=== PATIENT | male | born 1960 | race Two or more races ===

== ENCOUNTER 2017-03-23 23:43 | Inpatient (IN) | payer SELFPAY ==
[~2017-03-23] VITALS: Ht 182.9 cm; Wt 99.8 kg
[2017-03-24] VITALS (45 sets, daily range): BP systolic 87–150; BP diastolic 26–92
[2017-03-24] MEDS ORDERED: Miralax 17gm pkt ORAL PRN (00:15)
[2017-03-24] MEDS ORDERED: Morphine Sulfate 2mg/ml Inj IVP PRN (00:15)
[2017-03-24] MEDS ORDERED: LORazepam Inj 2mg/ml 1ml IV PRN (00:15)
[2017-03-24] MEDS ORDERED: Zolpidem 5mg tab ORAL PRN (00:15)
[2017-03-24] MEDS ORDERED: Mylanta II UD 30ml ORAL PRN (00:15)
[2017-03-24 00:47] LABS: MEAN CORPUSCULAR HEMOGLOBIN 16.6 PG (27.0-31.0); MEAN CORPUSCULAR HGB CONC 27.1 G/DL (32.0-36.0); MEAN CORPUSCULAR VOLUME 61 FL (80-99); MEAN PLATELET VOLUME 5.8 FL (6.5-10.1); PLATELET COUNT 229 K/UL (150-450); RED BLOOD COUNT 3.33 M/UL (4.70-6.10); RED CELL DISTRIBUTION WIDTH 18.4 % (11.6-14.8)
[2017-03-24 00:58] LABS: INR 1.1 (0.9-1.1); PROTHROMBIN TIME 11.4 SEC (9.30-11.50)
--- NOTE | 2017-03-24 00:59 | Emergency Room Report ---
History of Present Illness General Chief Complaint: Seizure Source: Patient, EMS Present Illness HPI Patient was brought in by paramedics for reports of seizure activity Patient was witnessed by bystanders having a seizure Patient here is incoherent not able to provide appropriate history patient is slurring his speech Appears edematous his facial area Unknown past medical history History of present illness is significantly limited Patient moving all extremities without focal deficit Allergies: Coded Allergies: No Known Allergies (Unverified , 03/24/17) Patient History Limited by: medical condition Past Medical History: see triage record Past Surgical History: unable to obtain Pertinent Family History: unable to obtain Reviewed Nursing Documentation: PMH: Agreed, PSxH: Agreed Review of Systems All Other Systems: limited - Other than the ones mentioned in the history of present illness all others are reviewed however they do stay limited due to the patient's mental status Physical Exam Vital Signs Date Time Temp Pulse Resp B/P (MAP) Pulse Ox O2 Delivery O2 Flow Rate FiO2 03/23/17 23:40 98.1 77 20 110/74 99 Room Air Sp02 EP Interpretation: reviewed, normal General Appearance: mild distress - Patient appears confused, not able to have appropriate speech Head: normocephalic, atraumatic Eyes: bilateral eye PERRL, bilateral eye EOMI, bilateral eye other - However appears edematous on both upper and lower eyelids ENT: normal pharynx, no angioedema Neck: full range of motion, supple Respiratory: chest non-tender, lungs clear Cardiovascular #1: regular rate, rhythm Gastrointestinal: non tender, soft Genitourinary: no CVA tenderness Musculoskeletal: other - Patient does not follow commands however is observed moving all extremities without obvious focal deficit Neurologic: other - Decreased GCS, incomprehensible speech, no obvious focal deficit maintains appropriate gag reflex, Skin: no rash, warm/dry Lymphatic: no adenopathy Procedures Critical Care Time Critical Care Time 80 minutes for multiple re\re evaluations Continued critical care time in the emergency room while holding ICU admission Not including any procedural time Medical Decision Making Diagnostic Impression: Primary Impression: Symptomatic anemia Additional Impressions: Alcohol intoxication GI bleed ER Course Upon initial arrival multiple differentials are considered including but not limited to Intracranial pathology, infectious, metabolic Patient's hemoglobin count returns extremely low at 5.6 Rectal exam does not reveal any obvious melena Patient was found to have Motrin p.m. in his pocket Alcohol level is over 500 Raising concerns of possible upper GI hemorrhage patient has not had any vomiting at this time Maintains gag reflex And saturates well Therefore airway intubation has not been performed Patient has blood transfusions ordered Has multiple repeat examinations CT head does not reveal any obvious acute pathology And patient is admitted to the ICU for critical condition Labs Test 03/24/17 00:33 03/24/17 01:45 White Blood Count 6.0 K/UL (4.8-10.8) Red Blood Count 3.33 M/UL (4.70-6.10) Hemoglobin 5.5 G/DL (14.2-18.0) Hematocrit 20.4 % (42.0-52.0) Mean Corpuscular Volume 61 FL (80-99) Mean Corpuscular Hemoglobin 16.6 PG (27.0-31.0) Mean Corpuscular Hemoglobin Concent 27.1 G/DL (32.0-36.0) Red Cell Distribution Width 18.4 % (11.6-14.8) Platelet Count 229 K/UL (150-450) Mean Platelet Volume 5.8 FL (6.5-10.1) Neutrophils (%) (Auto) % (45.0-75.0) Lymphocytes (%) (Auto) % (20.0-45.0) Monocytes (%) (Auto) % (1.0-10.0) Eosinophils (%) (Auto) % (0.0-3.0) Basophils (%) (Auto) % (0.0-2.0) Prothrombin Time 11.4 SEC (9.30-11.50) Prothromb Time International Ratio 1.1 (0.9-1.1) Activated Partial Thromboplast Time 32 SEC (23-33) Sodium Level 130 MMOL/L (136-145) Potassium Level 3.8 MMOL/L (3.5-5.1) Chloride Level 96 MMOL/L (98-107) Carbon Dioxide Level 23 MMOL/L (21-32) Anion Gap 11 mmol/L (5-15) Blood Urea Nitrogen 13 mg/dL (7-18) Creatinine 1.0 MG/DL (0.55-1.30) Estimat Glomerular Filtration Rate > 60 mL/min (>60) Glucose Level 100 MG/DL (74-106) Calcium Level 7.6 MG/DL (8.5-10.1) Total Bilirubin 0.5 MG/DL (0.2-1.0) Aspartate Amino Transf (AST/SGOT) 64 U/L (15-37) Alanine Aminotransferase (ALT/SGPT) 19 U/L (12-78) Alkaline Phosphatase 66 U/L (46-116) Total Creatine Kinase 164 U/L (26-308) Creatine Kinase MB 1.8 NG/ML (0.0-3.6) Creatine Kinase MB Relative Index 1.0 Troponin I 0.034 ng/mL (0.000-0.056) Pro-B-Type Natriuretic Peptide 417 pg/mL (0-125) Total Protein 8.9 G/DL (6.4-8.2) Albumin 3.1 G/DL (3.4-5.0) Globulin 5.8 g/dL Albumin/Globulin Ratio 0.5 (1.0-2.7) Lipase 373 U/L (73-393) Serum Alcohol 576 mg/dL Urine Color Yellow Urine Appearance Clear Urine pH 6.0 (4.5-8.0) Urine Specific [place] 1.010 (1.005-1.035) Urine Protein Negative (NEGATIVE) Urine Glucose (UA) Negative (NEGATIVE) Urine Ketones Negative (NEGATIVE) Urine Occult Blood Negative (NEGATIVE) Urine Nitrite Negative (NEGATIVE) Urine Bilirubin Negative (NEGATIVE) Urine Urobilinogen Normal MG/DL (0.0-1.0) Urine Leukocyte Esterase Negative (NEGATIVE) Urine Opiates Screen Negative (NEGATIVE) Urine Barbiturates Screen Negative (NEGATIVE) Phencyclidine (PCP) Screen Negative (NEGATIVE) Urine Amphetamines Screen Negative (NEGATIVE) Urine Benzodiazepines Screen Negative (NEGATIVE) Urine Cocaine Screen Negative (NEGATIVE) Urine Marijuana (THC) Screen Negative (NEGATIVE) EKG Diagnostic Results Rate: normal Rhythm: NSR ST Segments: no acute changes Rhythm Strip Diag. Results EP Interpretation: yes Rate: 77 Rhythm: NSR, no PVC's, no ectopy Chest X-Ray Diagnostic Results Chest X-Ray Diagnostic Results : Chest X-Ray Ordered: Yes # of Views/Limited/Complete: 1 View Indication: Chest Pain EP Interpretation: Yes Interpretation: no consolidation, no effusion, no pneumothorax Impression: No acute disease Electronically Signed by: Angle Walker, DO CT/MRI/US Diagnostic Results CT/MRI/US Diagnostic Results : Impression CT head no acute disease Last Vital Signs Date Time Temp Pulse Resp B/P (MAP) Pulse Ox O2 Delivery O2 Flow Rate FiO2 03/23/17 23:40 98.1 77 20 110/74 99 Room Air Status: improved Disposition: ADMITTED INPATIENT Condition: Critical Referrals: NOT CHOSEN IPA/,REFERRING (PCP) ANGLE WALKER D.O. Mar 24, 2017 00:59
[2017-03-24 01:09] LABS: ANION GAP 11 mmol/L (5-15); CALCIUM 7.6 MG/DL (8.5-10.1); CARBON DIOXIDE 23 MMOL/L (21-32); CHLORIDE 96 MMOL/L (98-107); GLOMERULAR FILTRATION RATE > 60 mL/min (>60); POTASSIUM 3.8 MMOL/L (3.5-5.1); SODIUM 130 MMOL/L (136-145)
[2017-03-24 01:21] LABS: ALANINE AMINOTRANSFERASE 19 U/L (12-78); ALBUMIN/GLOBULIN RATIO 0.5 (1.0-2.7); ALCOHOL 576 mg/dL; ASPARTATE AMINO TRANSFERASE 64 U/L (15-37); CKMB 1.8 NG/ML (0.0-3.6); LIPASE 373 U/L (73-393); TOTAL PROTEIN 8.9 G/DL (6.4-8.2)
[2017-03-24] MEDS ORDERED: Pantoprazole Inj IVP ONE (01:30)
[2017-03-24] MEDS ORDERED: Calcium Chloride 100mg/ml Vial IVP ONE (01:30)
[2017-03-24] MEDS ORDERED: Calcium Gluconate 1gm/10ml vial ONE (02:38)
[2017-03-24] MEDS ORDERED: Calcium Gluconate 10% 1 GM in NS 110 ML IVPB ONE (02:45)
[2017-03-24 03:01] LABS: KETONES,URINE NEGATIVE (NEGATIVE); LEUKOCYTE ESTERASE ,URINE NEGATIVE (NEGATIVE); NITRITE,URINE NEGATIVE (NEGATIVE); PROTEIN,URINE NEGATIVE (NEGATIVE); UROBILINOGEN,URINE NORMAL MG/DL (0.0-1.0)
[2017-03-24 03:02] LABS: APPEARANCE,URINE CLEAR
[2017-03-24] MEDS ORDERED: Heparin 5000 units/ml inj SUBQ SCH (09:00)
[2017-03-24] MEDS ORDERED: MOTRIN PM CAPL1 EAC1 PO (11:42)
--- NOTE | 2017-03-24 16:25 | History and Physical ---
History of Present Illness General Date patient seen: Mar 24, 2017 Reason for Hospitalization: Seizure Present Illness HPI 56 year old male with hx of ETOH abuse, homelessness brought in by paramedics for reports of seizure activity Patient was witnessed by bystanders having a seizure. His hem was 5 and he is admitted to ICU. He had episode of ugi bleeding as well. Allergies: Coded Allergies: No Known Allergies (Unverified , 03/24/17) Medication History Scheduled Ibuprofen/Diphenhydramine (Motrin Pm Caplet), 1 EACH PO DAILY, (Reported) Patient History Healthcare decision maker Resuscitation status Full Code Advanced Directive on File Past Medical/Surgical History Past Medical/Surgical History: (1) Homelessness Review of Systems All Other Systems: negative except mentioned in HPI Physical Exam General Appearance: WD/WN Lines, tubes and drains: peripheral HEENT: normocephalic, atraumatic Neck: non-tender, normal alignment Respiratory/Chest: chest wall non-tender, lungs clear Cardiovascular/Chest: normal peripheral pulses, normal rate Abdomen: normal bowel sounds, soft Genitourinary/Rectal: normal genital exam, normal rectal exam Extremities: normal range of motion, non-tender Skin Exam: normal pigmentation Last 24 Hour Vital Signs Date Time Temp Pulse Resp B/P (MAP) Pulse Ox O2 Delivery O2 Flow Rate FiO2 03/24/17 16:00 89 03/24/17 15:00 97.8 97 18 130/79 98 Room Air 03/24/17 14:10 96.9 81 17 114/66 100 Room Air 03/24/17 13:10 96.9 83 23 107/67 100 Room Air 03/24/17 12:55 96.9 78 14 107/66 97 Room Air 03/24/17 12:40 97.4 88 16 117/76 100 Room Air 03/24/17 12:35 97.2 90 15 122/81 100 Room Air 03/24/17 12:30 97.0 90 13 105/67 100 Room Air 03/24/17 12:25 96.8 79 16 103/70 100 Room Air 03/24/17 12:25 96.8 79 18 03/24/17 11:30 96.5 81 21 113/66 100 Room Air 03/24/17 10:45 96.5 71 14 97/64 100 Room Air 03/24/17 10:30 96.9 75 16 103/61 99 Room Air 03/24/17 10:15 96.6 78 16 105/66 100 Room Air 03/24/17 10:10 96.9 79 15 101/66 100 Room Air 03/24/17 10:05 96.9 83 14 96/61 100 Room Air 03/24/17 10:00 96.4 80 18 03/24/17 10:00 96.4 80 15 102/63 100 Room Air 03/24/17 09:30 93.1 72 16 102/63 99 Room Air 03/24/17 08:45 96.3 71 12 107/67 99 Room Air 03/24/17 08:25 96.3 72 13 96/63 99 Room Air 03/24/17 08:10 96.4 76 13 103/64 99 Room Air 03/24/17 07:55 96.0 80 14 98/66 100 Room Air 03/24/17 07:40 96.1 82 14 107/71 99 Room Air 03/24/17 07:35 96.3 85 17 105/61 99 Room Air 03/24/17 07:30 96.3 83 15 93/61 100 Room Air 03/24/17 07:25 96.5 86 16 100/66 100 Room Air 03/24/17 07:25 96.5 86 16 03/24/17 07:23 98.7 78 16 95/63 99 Room Air 03/24/17 07:15 81 15 Room Air 03/24/17 07:00 98.7 76 16 03/24/17 07:00 98.5 71 16 109/66 99 Room Air 03/24/17 06:30 98.7 76 16 87/62 99 Room Air 03/24/17 06:00 98.7 76 16 109/63 99 Room Air 03/24/17 05:30 98.7 76 16 118/67 99 Room Air 03/24/17 05:00 98.7 88 16 116/66 99 Room Air 03/24/17 04:15 99.5 79 16 03/24/17 04:15 99.5 79 16 107/26 99 Room Air 03/24/17 04:00 99.7 76 16 93/55 99 Room Air 03/24/17 04:00 99.7 76 16 03/24/17 03:30 99.3 77 20 97/73 99 Room Air 03/24/17 03:00 99.5 77 20 97/75 99 Room Air 03/24/17 02:30 98.9 77 20 104/65 99 Room Air 03/24/17 02:00 98.7 78 20 104/65 99 Room Air 03/24/17 01:30 98.1 73 20 116/63 99 Room Air 03/24/17 01:00 98.1 78 20 114/92 99 Room Air 03/23/17 23:45 77 20 Room Air 03/23/17 23:40 98.1 77 20 110/74 99 Room Air Intake and Output 03/24/17 03/25/17 19:00 07:00 Intake Total 500 ml Output Total 2350 ml Balance -1850 ml Blood Product 500 ml Output Urine Total 2350 ml # Voids 2 Laboratory Tests Test 03/24/17 00:33 03/24/17 01:45 03/24/17 16:15 White Blood Count 6.0 K/UL (4.8-10.8) Pending Red Blood Count 3.33 M/UL (4.70-6.10) L Pending Hemoglobin 5.5 G/DL (14.2-18.0) *L Pending Hematocrit 20.4 % (42.0-52.0) L Pending Mean Corpuscular Volume 61 FL (80-99) L Pending Mean Corpuscular Hemoglobin 16.6 PG (27.0-31.0) L Pending Mean Corpuscular Hemoglobin Concent 27.1 G/DL (32.0-36.0) L Pending Red Cell Distribution Width 18.4 % (11.6-14.8) H Pending Platelet Count 229 K/UL (150-450) Pending Mean Platelet Volume 5.8 FL (6.5-10.1) L Pending Neutrophils (%) (Auto) % (45.0-75.0) Pending Lymphocytes (%) (Auto) % (20.0-45.0) Pending Monocytes (%) (Auto) % (1.0-10.0) Pending Eosinophils (%) (Auto) % (0.0-3.0) Pending Basophils (%) (Auto) % (0.0-2.0) Pending Prothrombin Time 11.4 SEC (9.30-11.50) Prothromb Time International Ratio 1.1 (0.9-1.1) Activated Partial Thromboplast Time 32 SEC (23-33) Sodium Level 130 MMOL/L (136-145) L Pending Potassium Level 3.8 MMOL/L (3.5-5.1) Pending Chloride Level 96 MMOL/L (98-107) L Pending Carbon Dioxide Level 23 MMOL/L (21-32) Pending Anion Gap 11 mmol/L (5-15) Blood Urea Nitrogen 13 mg/dL (7-18) Pending Creatinine 1.0 MG/DL (0.55-1.30) Pending Estimat Glomerular Filtration Rate > 60 mL/min (>60) Pending Glucose Level 100 MG/DL (74-106) Pending Calcium Level 7.6 MG/DL (8.5-10.1) L Pending Total Bilirubin 0.5 MG/DL (0.2-1.0) Pending Aspartate Amino Transf (AST/SGOT) 64 U/L (15-37) H Pending Alanine Aminotransferase (ALT/SGPT) 19 U/L (12-78) Pending Alkaline Phosphatase 66 U/L (46-116) Pending Total Creatine Kinase 164 U/L (26-308) Creatine Kinase MB 1.8 NG/ML (0.0-3.6) Creatine Kinase MB Relative Index 1.0 Troponin I 0.034 ng/mL (0.000-0.056) Pro-B-Type Natriuretic Peptide 417 pg/mL (0-125) H Total Protein 8.9 G/DL (6.4-8.2) H Pending Albumin 3.1 G/DL (3.4-5.0) L Pending Globulin 5.8 g/dL Pending Albumin/Globulin Ratio 0.5 (1.0-2.7) L Lipase 373 U/L (73-393) Serum Alcohol 576 mg/dL Urine Color Yellow Urine Appearance Clear Urine pH 6.0 (4.5-8.0) Urine Specific [place] 1.010 (1.005-1.035) Urine Protein Negative (NEGATIVE) Urine Glucose (UA) Negative (NEGATIVE) Urine Ketones Negative (NEGATIVE) Urine Occult Blood Negative (NEGATIVE) Urine Nitrite Negative (NEGATIVE) Urine Bilirubin Negative (NEGATIVE) Urine Urobilinogen Normal MG/DL (0.0-1.0) Urine Leukocyte Esterase Negative (NEGATIVE) Urine Opiates Screen Negative (NEGATIVE) Urine Barbiturates Screen Negative (NEGATIVE) Phencyclidine (PCP) Screen Negative (NEGATIVE) Urine Amphetamines Screen Negative (NEGATIVE) Urine Benzodiazepines Screen Negative (NEGATIVE) Urine Cocaine Screen Negative (NEGATIVE) Urine Marijuana (THC) Screen Negative (NEGATIVE) Height (Feet): 6 Height (Inches): 0.00 Weight (Pounds): 220 Medications Current Medications Medications (Trade) Dose Ordered Sig/Wendy Route PRN Reason Start Time Stop Time Status Last Admin Dose Admin Acetaminophen (Tylenol) 650 mg Q4H PRN ORAL fever 03/24/17 00:15 04/23/17 00:14 Al Hydroxide/Mg Hydroxide (Mylanta II) 30 ml Q6H PRN ORAL dyspepsia 03/24/17 00:15 04/23/17 00:14 Dextrose (Dextrose 50%) STAT PRN IV Hypoglycemia 03/24/17 00:15 04/23/17 00:14 Folic Acid 1 mg/ Magnesium Sulfate 2000 mg/ Multivitamins 10 ml/Sodium Chloride 1,014.2 ml @ 125 mls/ hr Q24H IV 03/24/17 16:00 04/23/17 15:59 Lorazepam (Ativan 2mg/ml 1ml) 2 mg Q1H PRN IV seizures 03/24/17 00:15 03/31/17 00:14 Morphine Sulfate (Morphine Sulfate) 1 mg Q4H PRN IVP For Pain 03/24/17 00:15 03/31/17 00:14 Ondansetron HCl (Zofran) 4 mg Q6H PRN IVP Nausea & Vomiting 03/24/17 00:15 04/23/17 00:14 Pantoprazole (Protonix) 40 mg EVERY 12 HOURS IVP 03/24/17 21:00 04/23/17 20:59 Polyethylene Glycol (Miralax) 17 gm HSPRN PRN ORAL Constipation 03/24/17 00:15 04/23/17 00:14 Thiamine HCl 100 mg/Dextrose 56 ml @ 112 mls/hr Q24H IVPB 03/24/17 16:00 04/23/17 15:59 Zolpidem Tartrate (Ambien) 5 mg HSPRN PRN ORAL Insomnia 03/24/17 00:15 03/31/17 00:14 Assessment/Plan Problem List: (1) Hemorrhagic shock ICD Codes: R57.8 - Other shock SNOMED: 645808 (2) GI bleed ICD Codes: K92.2 - Gastrointestinal hemorrhage, unspecified SNOMED: 71442498 (3) Alcohol intoxication ICD Codes: F10.929 - Alcohol use, unspecified with intoxication, unspecified SNOMED: 84097971 (4) Homelessness ICD Codes: Z59.0 - Homelessness SNOMED: 32675915 (5) Uncontrolled seizures ICD Codes: R56.9 - Unspecified convulsions SNOMED: 21961155 (6) Symptomatic anemia ICD Codes: D64.9 - Anemia, unspecified SNOMED: 508990560 Assessment/Plan prbc prn check coagulation symptomatic treatment librium banana bag GI evaluation SAVANNAH JUAREZ Mar 24, 2017 16:25
[2017-03-24 16:26] LABS: MEAN CORPUSCULAR HEMOGLOBIN 21.2 PG (27.0-31.0); MEAN CORPUSCULAR HGB CONC 30.5 G/DL (32.0-36.0); MEAN CORPUSCULAR VOLUME 69 FL (80-99); MEAN PLATELET VOLUME 5.7 FL (6.5-10.1); PLATELET COUNT 186 K/UL (150-450); RED BLOOD COUNT 4.17 M/UL (4.70-6.10); WHITE BLOOD COUNT 3.3 K/UL (4.8-10.8)
[2017-03-24 16:29] LABS: BASOPHILS % (AUTO) 2.1 % (0.0-2.0); LYMPHOCYTES % (AUTO) 15.5 % (20.0-45.0); MONOCYTES % (AUTO) 11.7 % (1.0-10.0); NEUTROPHILS % (AUTO) 65.8 % (45.0-75.0)
[2017-03-24] MEDS ORDERED: chlordiazePOXIDE 25mg Cap ORAL PRN (16:30)
[2017-03-24 16:34] LABS: ANION GAP 12 mmol/L (5-15); CALCIUM 7.8 MG/DL (8.5-10.1); CARBON DIOXIDE 24 MMOL/L (21-32); CHLORIDE 106 MMOL/L (98-107); CREATININE 0.8 MG/DL (0.55-1.30); GLOMERULAR FILTRATION RATE > 60 mL/min (>60); POTASSIUM 3.5 MMOL/L (3.5-5.1); SODIUM 142 MMOL/L (136-145)
--- NOTE | 2017-03-24 16:36 | GI Initial Consult Note ---
History of Present Illness General Date patient seen: Mar 24, 2017 Time patient seen: 16:27 Reason for Hospitalization: Seizure Referring physician: SAVANNAH TOMPKINS Reason for Consultation: ANEMIA Present Illness HPI 56 year old male with hx of ETOH abuse, homelessness brought in by paramedics for reports of seizure activity Patient was witnessed by bystanders having a seizure. His hem was 5 and he is admitted to ICU. He had episode of ugi bleeding as well. GI consulted for anemia requiring 4 units of blood transfusion. HPI as noted above. Pt seen on floor, awake A&Ox4 NAD with no active s/sx of N/V/D. Generalized edema noted. Stated he had half a bottle of tequila and has history of ETOH abuse. No known history of endoscopic /colonoscopies. Abdomen soft, non tender to touch. Presents today with severe anemia, elevated serum alcohol levels 576 and transaminitis. Home Meds Reported Medications Ibuprofen/Diphenhydramine (MOTRIN PM CAPLET) 1 Each Tablet, 1 EACH PO DAILY, TAB 03/24/17 Allergies: Coded Allergies: No Known Allergies (Unverified , 03/24/17) Patient History History Provided By: Patient PMH Narrative Past Medical/Surgical History: Homelessness HTN Social History: Reports: alcohol use - ETOH abuse Review of Systems All Other Systems: negative except mentioned in HPI Physical Exam Vital Signs Date Time Temp Pulse Resp B/P (MAP) Pulse Ox O2 Delivery O2 Flow Rate FiO2 03/23/17 23:40 98.1 77 20 110/74 99 Room Air Sp02 EP Interpretation: reviewed, normal Labs Laboratory Tests Test 03/24/17 00:33 03/24/17 01:45 03/24/17 16:15 White Blood Count 6.0 K/UL (4.8-10.8) Pending Red Blood Count 3.33 M/UL (4.70-6.10) L Pending Hemoglobin 5.5 G/DL (14.2-18.0) *L Pending Hematocrit 20.4 % (42.0-52.0) L Pending Mean Corpuscular Volume 61 FL (80-99) L Pending Mean Corpuscular Hemoglobin 16.6 PG (27.0-31.0) L Pending Mean Corpuscular Hemoglobin Concent 27.1 G/DL (32.0-36.0) L Pending Red Cell Distribution Width 18.4 % (11.6-14.8) H Pending Platelet Count 229 K/UL (150-450) Pending Mean Platelet Volume 5.8 FL (6.5-10.1) L Pending Neutrophils (%) (Auto) % (45.0-75.0) Pending Lymphocytes (%) (Auto) % (20.0-45.0) Pending Monocytes (%) (Auto) % (1.0-10.0) Pending Eosinophils (%) (Auto) % (0.0-3.0) Pending Basophils (%) (Auto) % (0.0-2.0) Pending Prothrombin Time 11.4 SEC (9.30-11.50) Prothromb Time International Ratio 1.1 (0.9-1.1) Activated Partial Thromboplast Time 32 SEC (23-33) Sodium Level 130 MMOL/L (136-145) L Pending Potassium Level 3.8 MMOL/L (3.5-5.1) Pending Chloride Level 96 MMOL/L (98-107) L Pending Carbon Dioxide Level 23 MMOL/L (21-32) Pending Anion Gap 11 mmol/L (5-15) Blood Urea Nitrogen 13 mg/dL (7-18) Pending Creatinine 1.0 MG/DL (0.55-1.30) Pending Estimat Glomerular Filtration Rate > 60 mL/min (>60) Pending Glucose Level 100 MG/DL (74-106) Pending Calcium Level 7.6 MG/DL (8.5-10.1) L Pending Total Bilirubin 0.5 MG/DL (0.2-1.0) Pending Aspartate Amino Transf (AST/SGOT) 64 U/L (15-37) H Pending Alanine Aminotransferase (ALT/SGPT) 19 U/L (12-78) Pending Alkaline Phosphatase 66 U/L (46-116) Pending Total Creatine Kinase 164 U/L (26-308) Creatine Kinase MB 1.8 NG/ML (0.0-3.6) Creatine Kinase MB Relative Index 1.0 Troponin I 0.034 ng/mL (0.000-0.056) Pro-B-Type Natriuretic Peptide 417 pg/mL (0-125) H Total Protein 8.9 G/DL (6.4-8.2) H Pending Albumin 3.1 G/DL (3.4-5.0) L Pending Globulin 5.8 g/dL Pending Albumin/Globulin Ratio 0.5 (1.0-2.7) L Lipase 373 U/L (73-393) Serum Alcohol 576 mg/dL Urine Color Yellow Urine Appearance Clear Urine pH 6.0 (4.5-8.0) Urine Specific [place] 1.010 (1.005-1.035) Urine Protein Negative (NEGATIVE) Urine Glucose (UA) Negative (NEGATIVE) Urine Ketones Negative (NEGATIVE) Urine Occult Blood Negative (NEGATIVE) Urine Nitrite Negative (NEGATIVE) Urine Bilirubin Negative (NEGATIVE) Urine Urobilinogen Normal MG/DL (0.0-1.0) Urine Leukocyte Esterase Negative (NEGATIVE) Urine Opiates Screen Negative (NEGATIVE) Urine Barbiturates Screen Negative (NEGATIVE) Phencyclidine (PCP) Screen Negative (NEGATIVE) Urine Amphetamines Screen Negative (NEGATIVE) Urine Benzodiazepines Screen Negative (NEGATIVE) Urine Cocaine Screen Negative (NEGATIVE) Urine Marijuana (THC) Screen Negative (NEGATIVE) General Appearance: well appearing, no apparent distress, alert Head: normocephalic EENT: PERRL/EOMI, normal ENT inspection Neck: supple Respiratory: normal breath sounds, no respiratory distress Cardiovascular: normal rate Gastrointestinal: normal inspection, non tender, soft, normal bowel sounds, non -distended Rectal: deferred Genitourinary: deferred Musculoskeletal: normal inspection, back normal Neurologic: normal inspection, alert, oriented x3, responsive Psychiatric: normal inspection, judgement/insight normal, memory normal Skin: normal inspection, normal color, no rash, warm/dry, palpation normal, well hydrated Lymphatic: normal inspection, no adenopathy Current Medications Current Medications Medications (Trade) Dose Ordered Sig/Wendy Route PRN Reason Start Time Stop Time Status Last Admin Dose Admin Acetaminophen (Tylenol) 650 mg Q4H PRN ORAL fever 03/24/17 00:15 04/23/17 00:14 Al Hydroxide/Mg Hydroxide (Mylanta II) 30 ml Q6H PRN ORAL dyspepsia 03/24/17 00:15 04/23/17 00:14 Dextrose (Dextrose 50%) STAT PRN IV Hypoglycemia 03/24/17 00:15 04/23/17 00:14 Folic Acid 1 mg/ Magnesium Sulfate 2000 mg/ Multivitamins 10 ml/Sodium Chloride 1,014.2 ml @ 125 mls/ hr Q24H IV 03/24/17 16:00 04/23/17 15:59 Lorazepam (Ativan 2mg/ml 1ml) 2 mg Q1H PRN IV seizures 03/24/17 00:15 03/31/17 00:14 Morphine Sulfate (Morphine Sulfate) 1 mg Q4H PRN IVP For Pain 03/24/17 00:15 03/31/17 00:14 Ondansetron HCl (Zofran) 4 mg Q6H PRN IVP Nausea & Vomiting 03/24/17 00:15 04/23/17 00:14 Pantoprazole (Protonix) 40 mg EVERY 12 HOURS IVP 03/24/17 21:00 04/23/17 20:59 Polyethylene Glycol (Miralax) 17 gm HSPRN PRN ORAL Constipation 03/24/17 00:15 04/23/17 00:14 Thiamine HCl 100 mg/Dextrose 56 ml @ 112 mls/hr Q24H IVPB 03/24/17 16:00 04/23/17 15:59 Zolpidem Tartrate (Ambien) 5 mg HSPRN PRN ORAL Insomnia 03/24/17 00:15 03/31/17 00:14 GI: Plan Problems: (1) Alcohol intoxication (2) Hemorrhagic shock (3) Symptomatic anemia (4) GI bleed (5) Homelessness Plan EGD scheduled for tomorrow. - CLD now, NPO @ [place]. IVFs @ 75cc. ppi BID monitor H&H, prn transfusion >> 4 units today >> post CBC fu venous duplex fu labs Discussed with Dr. Cordero. Thank you for this patient referral, we will follow. Brianda Johnson N.P. Mar 24, 2017 16:36
[2017-03-24 16:45] LABS: ALANINE AMINOTRANSFERASE 27 U/L (12-78); ALBUMIN/GLOBULIN RATIO 0.6 (1.0-2.7); ASPARTATE AMINO TRANSFERASE 65 U/L (15-37); TOTAL PROTEIN 7.9 G/DL (6.4-8.2)
[2017-03-24 16:47] LABS: BILIRUBIN,DIRECT 0.4 MG/DL (0.0-0.3)
[2017-03-24] MEDS ORDERED: Thiamine HCl 100mg/ml 2 ml Inj ONE (16:48)
[2017-03-24] MEDS: Thiamine HCl 100 MG in D5W 55 ML IVPB SCH (17:01)
[2017-03-24] MEDS: Folic Acid 1 MG, Magnesium Sulfate 2,000 MG, Multivitamin - 12 Injection 10 ML in NS w/... IV SCH (17:01)
[2017-03-24] MEDS: Pantoprazole Inj IVP SCH (21:03)
[2017-03-25] VITALS (20 sets, daily range): BP systolic 120–156; BP diastolic 58–98
[2017-03-25 00:37] LABS: MEAN CORPUSCULAR HEMOGLOBIN 20.8 PG (27.0-31.0); MEAN CORPUSCULAR VOLUME 69 FL (80-99); MEAN PLATELET VOLUME 5.5 FL (6.5-10.1); PLATELET COUNT 204 K/UL (150-450); RED BLOOD COUNT 3.79 M/UL (4.70-6.10); RED CELL DISTRIBUTION WIDTH 22.6 % (11.6-14.8); WHITE BLOOD COUNT 5.6 K/UL (4.8-10.8)
[2017-03-25 04:56] LABS: INR 1.1 (0.9-1.1); PROTHROMBIN TIME 11.5 SEC (9.30-11.50)
[2017-03-25 05:43] LABS: ALANINE AMINOTRANSFERASE 23 U/L (12-78); ALBUMIN/GLOBULIN RATIO 0.6 (1.0-2.7); ANION GAP 12 mmol/L (5-15); ASPARTATE AMINO TRANSFERASE 47 U/L (15-37); CALCIUM 7.9 MG/DL (8.5-10.1); CARBON DIOXIDE 23 MMOL/L (21-32); CHLORIDE 104 MMOL/L (98-107); CREATININE 0.7 MG/DL (0.55-1.30); GLOMERULAR FILTRATION RATE > 60 mL/min (>60); POTASSIUM 3.4 MMOL/L (3.5-5.1); SODIUM 139 MMOL/L (136-145); TOTAL PROTEIN 7.8 G/DL (6.4-8.2)
[2017-03-25 05:52] LABS: MEAN CORPUSCULAR HEMOGLOBIN 20.9 PG (27.0-31.0); MEAN CORPUSCULAR HGB CONC 30.3 G/DL (32.0-36.0); MEAN CORPUSCULAR VOLUME 69 FL (80-99); MEAN PLATELET VOLUME 6.4 FL (6.5-10.1); PLATELET COUNT 189 K/UL (150-450); RED BLOOD COUNT 3.63 M/UL (4.70-6.10); WHITE BLOOD COUNT 5.5 K/UL (4.8-10.8)
[2017-03-25 05:59] LABS: BILIRUBIN,DIRECT 0.4 MG/DL (0.0-0.3)
[2017-03-25] MEDS: Pantoprazole Inj IVP SCH ×2 (08:13→21:06)
[2017-03-25 08:20] LABS: MEAN CORPUSCULAR HEMOGLOBIN 19.8 PG (27.0-31.0); MEAN CORPUSCULAR HGB CONC 28.2 G/DL (32.0-36.0); MEAN CORPUSCULAR VOLUME 70 FL (80-99); MEAN PLATELET VOLUME 5.9 FL (6.5-10.1); PLATELET COUNT 187 K/UL (150-450); RED CELL DISTRIBUTION WIDTH 22.9 % (11.6-14.8)
--- NOTE | 2017-03-25 08:24 | Immediate Post-Op Evaluation ---
Immediate Post-Op Evalulation Immediate Post-Op Evalulation Procedure: EGD Date of Evaluation: Mar 25, 2017 Time of Evaluation: 10:35 IV Fluids: NS 200 ml Blood Products: 0 Estimated Blood Loss: 0 Urinary Output: 0 Blood Pressure Systolic: 144 Blood Pressure Diastolic: 68 Pulse Rate: 70 Respiratory Rate: 18 O2 Sat by Pulse Oximetry: 99 Temperature (Fahrenheit): 98.2 Pain Score (1-10): 0 Nausea: No Vomiting: No Patient Status: awake, reacts, patent Hydration Status: adequate Given Within 1 Hr of Incision: Dorothy Hanson CRNA Mar 25, 2017 08:24
--- NOTE | 2017-03-25 08:25 | 48 Hour Post Anesthesia Eval ---
Post Anesthesia Evaluation Procedure: EGD Date of Evaluation: Mar 25, 2017 Time of Evaluation: 10:42 Blood Pressure Systolic: 145 0: 68 Pulse Rate: 70 Respiratory Rate: 20 Temperature (Fahrenheit): 98.2 O2 Sat by Pulse Oximetry: 100 Airway: patent Nausea: No Vomiting: No Pain Intensity: 0 Hydration Status: adequate Mental Status/LOC: patient returned to baseline Follow-up care needed: patient intructions given Dorothy Escobar CRNA Mar 25, 2017 08:25
[2017-03-25 08:42] LABS: ANISOCYTOSIS 2+; BAND NEUTROPHILS % (MANUAL) 0 % (0-8); BASOPHILS % (MANUAL) 0 % (0-2); EOSINOPHILS % (MANUAL) 2 % (0-3); HYPOCHROMASIA 1+; LYMPHOCYTES % (MANUAL) 17 % (20-45); MICROCYTES 1+; NEUTROPHILS % (MANUAL) 72 % (45-75); PLATELET ESTIMATE ADEQUATE; PLATELET MORPHOLOGY NORMAL; TOTAL CELLS COUNTED 100
--- NOTE | 2017-03-25 09:50 | Anethesia Preoperative Eval ---
Anesthesia Pre-op PMH/ROS General Date of Evaluation: Mar 25, 2017 Time of Evaluation: 10:04 Anesthesiologist: Shawn ASA Score: ASA 3 Mallampati Score Class I : Soft palate, uvula, fauces, pillars visible Class II: Soft palate, uvula, fauces visible Class III: Soft palate, base of uvula visible Class IV: Only hard plate visible Mallampati Classification: Class II Surgeon: Consuelo Diagnosis: acute gi bleed Surgical Procedure: EGD Anesthesia History: none Social History: alcohol use - alcohol intoxication Family History: no anesthesia problems Allergies: Coded Allergies: No Known Allergies (Unverified , 03/24/17) Past Medical History Cardiovascular: Reports: HTN Gastrointestinal/Genitourinary: Reports: CRI Neurologic/Psychiatric: Reports: depression/anxiety, other - seizure HEENT: Denies: cataract (L), cataract (R), glaucoma, [place] (L), [place] (R), other Hematology/Immune: Reports: anemia - gi bleed Musculoskeletal/Integumentary: Reports: OA - right knee Anesthesia Pre-op Phys. Exam Physician Exam Last Vital Signs Date Time Temp Pulse Resp B/P (MAP) Pulse Ox O2 Delivery O2 Flow Rate FiO2 03/25/17 09:00 71 21 141/64 98 Room Air 03/25/17 08:00 98.5 Constitutional: NAD Neurologic: CN 2-12 intact Cardiovascular: RRR Respiratory: CTA Gastrointestinal: S/NT/ND Airway Exam Mallampati Score: Class II MO: full ROM: full Teeth: other - bottom right side chipped tooth Dentures: no upper, no lower Anesthesia Pre-op A/P Labs Hematology Test 03/24/17 16:15 03/25/17 00:15 03/25/17 04:00 03/25/17 07:50 White Blood Count 3.3 K/UL (4.8-10.8) L 5.6 K/UL (4.8-10.8) # 5.5 K/UL (4.8-10.8) 6.0 K/UL (4.8-10.8) Red Blood Count 4.17 M/UL (4.70-6.10) L 3.79 M/UL (4.70-6.10) L 3.63 M/UL (4.70-6.10) L 3.90 M/UL (4.70-6.10) L Hemoglobin 8.8 G/DL (14.2-18.0) #L 7.9 G/DL (14.2-18.0) L 7.6 G/DL (14.2-18.0) L 7.7 G/DL (14.2-18.0) L Hematocrit 29.0 % (42.0-52.0) #L 26.2 % (42.0-52.0) L 25.1 % (42.0-52.0) L 27.4 % (42.0-52.0) L Mean Corpuscular Volume 69 FL (80-99) #L 69 FL (80-99) L 69 FL (80-99) L 70 FL (80-99) L Mean Corpuscular Hemoglobin 21.2 PG (27.0-31.0) L 20.8 PG (27.0-31.0) L 20.9 PG (27.0-31.0) L 19.8 PG (27.0-31.0) L Mean Corpuscular Hemoglobin Concent 30.5 G/DL (32.0-36.0) L 30.0 G/DL (32.0-36.0) L 30.3 G/DL (32.0-36.0) L 28.2 G/DL (32.0-36.0) L Red Cell Distribution Width 23.0 % (11.6-14.8) H 22.6 % (11.6-14.8) H 23.0 % (11.6-14.8) H 22.9 % (11.6-14.8) H Platelet Count 186 K/UL (150-450) 204 K/UL (150-450) 189 K/UL (150-450) 187 K/UL (150-450) Mean Platelet Volume 5.7 FL (6.5-10.1) L 5.5 FL (6.5-10.1) L 6.4 FL (6.5-10.1) L 5.9 FL (6.5-10.1) L Neutrophils (%) (Auto) 65.8 % (45.0-75.0) % (45.0-75.0) % (45.0-75.0) % (45.0-75.0) Lymphocytes (%) (Auto) 15.5 % (20.0-45.0) L % (20.0-45.0) % (20.0-45.0) % (20.0-45.0) Monocytes (%) (Auto) 11.7 % (1.0-10.0) H % (1.0-10.0) % (1.0-10.0) % (1.0-10.0) Eosinophils (%) (Auto) 5.0 % (0.0-3.0) H % (0.0-3.0) % (0.0-3.0) % (0.0-3.0) Basophils (%) (Auto) 2.1 % (0.0-2.0) H % (0.0-2.0) % (0.0-2.0) % (0.0-2.0) Differential Total Cells Counted 100 Neutrophils % (Manual) 72 % (45-75) Lymphocytes % (Manual) 17 % (20-45) L Monocytes % (Manual) 9 % (1-10) Eosinophils % (Manual) 2 % (0-3) Basophils % (Manual) 0 % (0-2) Band Neutrophils 0 % (0-8) Platelet Estimate Adequate Platelet Morphology Normal Hypochromasia 1+ Anisocytosis 2+ Microcytosis 1+ Coagulation Test 03/25/17 04:00 Prothrombin Time 11.5 SEC (9.30-11.50) Prothromb Time International Ratio 1.1 (0.9-1.1) Activated Partial Thromboplast Time 30 SEC (23-33) Chemistry Test 03/24/17 16:15 03/25/17 04:00 Sodium Level 142 MMOL/L (136-145) # 139 MMOL/L (136-145) Potassium Level 3.5 MMOL/L (3.5-5.1) 3.4 MMOL/L (3.5-5.1) L Chloride Level 106 MMOL/L (98-107) 104 MMOL/L (98-107) Carbon Dioxide Level 24 MMOL/L (21-32) 23 MMOL/L (21-32) Anion Gap 12 mmol/L (5-15) 12 mmol/L (5-15) Blood Urea Nitrogen 7 mg/dL (7-18) 5 mg/dL (7-18) L Creatinine 0.8 MG/DL (0.55-1.30) 0.7 MG/DL (0.55-1.30) Estimat Glomerular Filtration Rate > 60 mL/min (>60) > 60 mL/min (>60) Glucose Level 80 MG/DL (74-106) 70 MG/DL (74-106) L Calcium Level 7.8 MG/DL (8.5-10.1) L 7.9 MG/DL (8.5-10.1) L Total Bilirubin 1.1 MG/DL (0.2-1.0) H 1.5 MG/DL (0.2-1.0) H Direct Bilirubin 0.4 MG/DL (0.0-0.3) H 0.4 MG/DL (0.0-0.3) H Aspartate Amino Transf (AST/SGOT) 65 U/L (15-37) H 47 U/L (15-37) H Alanine Aminotransferase (ALT/SGPT) 27 U/L (12-78) 23 U/L (12-78) Alkaline Phosphatase 59 U/L (46-116) 54 U/L (46-116) Total Protein 7.9 G/DL (6.4-8.2) 7.8 G/DL (6.4-8.2) Albumin 2.9 G/DL (3.4-5.0) L 2.9 G/DL (3.4-5.0) L Globulin 5.0 g/dL 4.9 g/dL Albumin/Globulin Ratio 0.6 (1.0-2.7) L 0.6 (1.0-2.7) L Studies Pre-op Studies: EKG - NSR with 76 BPM Risk Assessment & Plan Assessment: A&O x 3 Plan: MAC Status Change Before Surgery: No Pre-Antibiotics Given Within 1 Hr of Incision: Dorothy Hanson CRNA Mar 25, 2017 09:50
[2017-03-25] MEDS ORDERED: Tubing IV Extension IV ONE (10:07)
[2017-03-25] MEDS ORDERED: NS 500ML IV ONE (10:07)
--- NOTE | 2017-03-25 10:14 | Pre-Procedure Note/Attestation ---
Pre-Procedure Note/Attestation Complete Prior to Procedure Planned Procedure: not applicable Procedure Narrative: egd Indications for Procedure Pre-Operative Diagnosis: gib Attestation I attest that I discussed the nature of the procedure; its benefits; risks and complications; and alternatives (and the risks and benefits of such alternatives ), prior to the procedure, with the patient (or the patient's legal aircraft sales representative). I attest that, if there was a reasonable possibility of needing a blood transfusion, the patient (or the patient's legal aircraft sales representative) was given the [facility] standardized written summary, pursuant to the Dae Raul Blood Safety Act ([place] Health and Safety Code # 1645, as amended). I attest that I re-evaluated the patient just prior to the surgery and that there has been no change in the patient's H&P, except as documented below: DAMARI SUAREZ Mar 25, 2017 10:13
--- NOTE | 2017-03-25 10:25 | Endoscopy Procedure Note ---
Endoscopy Procedure Note Indication for Procedure: gib Procedures Performed: EGD Operative Findings/Diagnosis: esophagitis Specimen: yes Pt Tolerated Procedure Well: Yes Estimated Blood Loss: none Anesthesiologist: deborah Anesthesia: MAC Implant(s) used?: No 50 yrs or older w/o bx or poly: Not Applicable 10yrs. F/U not recommended: Not Applicable DAMARI SUAREZ Mar 25, 2017 10:25
[2017-03-25] MEDS ORDERED: Midazolam 2mg/2ml Inj ONE (10:50)
[2017-03-25] MEDS ORDERED: Propofol 200mg/20ml IV ONE ×2 (10:50)
--- NOTE | 2017-03-25 11:15 | Pulmonolgy Critical Care Note ---
Critical Care - Asmt/Plan Problems: (1) Symptomatic anemia (2) Hemorrhagic shock (3) Alcohol intoxication (4) GI bleed Respiratory: monitor respiratory rate Cardiac: continue pressors, continue to monitor HR/BP Renal: F/U I&O, keep IV fluid Infectious Disease: check cultures Gastrointestinal: continue feedings/current rate Endocrine: monitor blood sugar, check TSH Hematologic: monitor H/H Neurologic: PRN Morphine Affect: PRN ativan Prophylaxis: Heparin Notes Reviewed: consulting technical manager, cardio Discussed with: nurses, consultants, keycase assemblerhealth and safety manager - Objective Last 24 Hour Vital Signs Date Time Temp Pulse Resp B/P (MAP) Pulse Ox O2 Delivery O2 Flow Rate FiO2 03/25/17 09:00 71 21 141/64 98 Room Air 03/25/17 08:00 98.5 67 14 134/77 98 Room Air 03/25/17 07:00 77 14 130/70 98 Room Air 03/25/17 06:00 71 14 125/58 98 Room Air 03/25/17 05:00 84 19 120/62 98 Room Air 03/25/17 04:00 69 03/25/17 04:00 98.3 72 14 140/76 97 Room Air 03/25/17 03:00 79 16 141/80 97 Room Air 03/25/17 02:00 78 14 123/61 97 Room Air 03/25/17 01:00 88 16 136/80 97 Room Air 03/25/17 00:00 77 03/25/17 00:00 99.0 83 14 121/59 95 Room Air 03/24/17 23:00 84 14 118/59 96 Room Air 03/24/17 22:00 97 14 132/79 95 Room Air 03/24/17 21:00 99 20 150/72 98 Room Air 03/24/17 20:00 98 03/24/17 20:00 98.0 96 17 126/58 97 Room Air 03/24/17 19:00 100 16 115/54 98 Room Air 03/24/17 18:00 85 13 115/57 95 Room Air 03/24/17 17:00 98 14 136/76 99 Room Air 03/24/17 16:00 98.0 85 16 118/70 98 Room Air 03/24/17 16:00 89 03/24/17 15:20 89 03/24/17 15:00 97.8 97 18 130/79 98 Room Air 03/24/17 14:10 96.9 81 17 114/66 100 Room Air 03/24/17 13:10 96.9 83 23 107/67 100 Room Air 03/24/17 12:55 96.9 78 14 107/66 97 Room Air 03/24/17 12:40 97.4 88 16 117/76 100 Room Air 03/24/17 12:35 97.2 90 15 122/81 100 Room Air 03/24/17 12:30 97.0 90 13 105/67 100 Room Air 03/24/17 12:25 96.8 79 16 103/70 100 Room Air 03/24/17 12:25 96.8 79 18 03/24/17 11:30 96.5 81 21 113/66 100 Room Air Status: awake Condition: grave HEENT: atraumatic Lungs: clear, chest wall tender Heart: HR/BP unstable, regular Abdomen: soft, active bowel sounds, feeding tube Extremities: edema Decubiti: location Micro: Microbiology Date/Time Source Procedure Growth Status 03/24/17 00:33 Blood Blood Culture - Preliminary NO GROWTH AFTER 24 HOURS Resulted 03/24/17 00:15 Blood Blood Culture - Preliminary NO GROWTH AFTER 24 HOURS Resulted 03/24/17 02:00 Rectum VRE Culture - Final NO VANCOMYCIN RESISTANT ENTEROCOCCUS ... Complete Critical Care - Subjective ROS Limited/Unobtainable: No ICU Day: 2 Condition: critical EKG Rhythm: Sinus Rhythm Sputum Amount: None Fluids: none I&O: Intake and Output 03/25/17 03/26/17 19:00 07:00 Output Total 450 ml Balance -450 ml Output Urine Total 450 ml CXR: jennifer Labs: Laboratory Tests Test 03/24/17 16:15 03/25/17 00:15 03/25/17 04:00 03/25/17 07:50 White Blood Count 3.3 K/UL (4.8-10.8) L 5.6 K/UL (4.8-10.8) # 5.5 K/UL (4.8-10.8) 6.0 K/UL (4.8-10.8) Red Blood Count 4.17 M/UL (4.70-6.10) L 3.79 M/UL (4.70-6.10) L 3.63 M/UL (4.70-6.10) L 3.90 M/UL (4.70-6.10) L Hemoglobin 8.8 G/DL (14.2-18.0) #L 7.9 G/DL (14.2-18.0) L 7.6 G/DL (14.2-18.0) L 7.7 G/DL (14.2-18.0) L Hematocrit 29.0 % (42.0-52.0) #L 26.2 % (42.0-52.0) L 25.1 % (42.0-52.0) L 27.4 % (42.0-52.0) L Mean Corpuscular Volume 69 FL (80-99) #L 69 FL (80-99) L 69 FL (80-99) L 70 FL (80-99) L Mean Corpuscular Hemoglobin 21.2 PG (27.0-31.0) L 20.8 PG (27.0-31.0) L 20.9 PG (27.0-31.0) L 19.8 PG (27.0-31.0) L Mean Corpuscular Hemoglobin Concent 30.5 G/DL (32.0-36.0) L 30.0 G/DL (32.0-36.0) L 30.3 G/DL (32.0-36.0) L 28.2 G/DL (32.0-36.0) L Red Cell Distribution Width 23.0 % (11.6-14.8) H 22.6 % (11.6-14.8) H 23.0 % (11.6-14.8) H 22.9 % (11.6-14.8) H Platelet Count 186 K/UL (150-450) 204 K/UL (150-450) 189 K/UL (150-450) 187 K/UL (150-450) Mean Platelet Volume 5.7 FL (6.5-10.1) L 5.5 FL (6.5-10.1) L 6.4 FL (6.5-10.1) L 5.9 FL (6.5-10.1) L Neutrophils (%) (Auto) 65.8 % (45.0-75.0) % (45.0-75.0) % (45.0-75.0) % (45.0-75.0) Lymphocytes (%) (Auto) 15.5 % (20.0-45.0) L % (20.0-45.0) % (20.0-45.0) % (20.0-45.0) Monocytes (%) (Auto) 11.7 % (1.0-10.0) H % (1.0-10.0) % (1.0-10.0) % (1.0-10.0) Eosinophils (%) (Auto) 5.0 % (0.0-3.0) H % (0.0-3.0) % (0.0-3.0) % (0.0-3.0) Basophils (%) (Auto) 2.1 % (0.0-2.0) H % (0.0-2.0) % (0.0-2.0) % (0.0-2.0) Sodium Level 142 MMOL/L (136-145) # 139 MMOL/L (136-145) Potassium Level 3.5 MMOL/L (3.5-5.1) 3.4 MMOL/L (3.5-5.1) L Chloride Level 106 MMOL/L (98-107) 104 MMOL/L (98-107) Carbon Dioxide Level 24 MMOL/L (21-32) 23 MMOL/L (21-32) Anion Gap 12 mmol/L (5-15) 12 mmol/L (5-15) Blood Urea Nitrogen 7 mg/dL (7-18) 5 mg/dL (7-18) L Creatinine 0.8 MG/DL (0.55-1.30) 0.7 MG/DL (0.55-1.30) Estimat Glomerular Filtration Rate > 60 mL/min (>60) > 60 mL/min (>60) Glucose Level 80 MG/DL (74-106) 70 MG/DL (74-106) L Calcium Level 7.8 MG/DL (8.5-10.1) L 7.9 MG/DL (8.5-10.1) L Total Bilirubin 1.1 MG/DL (0.2-1.0) H 1.5 MG/DL (0.2-1.0) H Direct Bilirubin 0.4 MG/DL (0.0-0.3) H 0.4 MG/DL (0.0-0.3) H Aspartate Amino Transf (AST/SGOT) 65 U/L (15-37) H 47 U/L (15-37) H Alanine Aminotransferase (ALT/SGPT) 27 U/L (12-78) 23 U/L (12-78) Alkaline Phosphatase 59 U/L (46-116) 54 U/L (46-116) Total Protein 7.9 G/DL (6.4-8.2) 7.8 G/DL (6.4-8.2) Albumin 2.9 G/DL (3.4-5.0) L 2.9 G/DL (3.4-5.0) L Globulin 5.0 g/dL 4.9 g/dL Albumin/Globulin Ratio 0.6 (1.0-2.7) L 0.6 (1.0-2.7) L Prothrombin Time 11.5 SEC (9.30-11.50) Prothromb Time International Ratio 1.1 (0.9-1.1) Activated Partial Thromboplast Time 30 SEC (23-33) Differential Total Cells Counted 100 Neutrophils % (Manual) 72 % (45-75) Lymphocytes % (Manual) 17 % (20-45) L Monocytes % (Manual) 9 % (1-10) Eosinophils % (Manual) 2 % (0-3) Basophils % (Manual) 0 % (0-2) Band Neutrophils 0 % (0-8) Platelet Estimate Adequate Platelet Morphology Normal Hypochromasia 1+ Anisocytosis 2+ Microcytosis 1+ SAVANNAH JUAREZ Mar 25, 2017 11:15
--- NOTE | 2017-03-25 12:12 | Neurology Progress Note ---
Interim History Interim History ROS Limited/Unobtainable: No Objective Physical Exam Last Vital Signs Date Time Temp Pulse Resp B/P (MAP) Pulse Ox O2 Delivery O2 Flow Rate FiO2 03/25/17 11:39 70 20 100 03/25/17 11:00 144/77 Room Air 03/25/17 08:00 98.5 Laboratory Tests Test 03/24/17 16:15 03/25/17 00:15 03/25/17 04:00 03/25/17 07:50 White Blood Count 3.3 K/UL (4.8-10.8) L 5.6 K/UL (4.8-10.8) # 5.5 K/UL (4.8-10.8) 6.0 K/UL (4.8-10.8) Red Blood Count 4.17 M/UL (4.70-6.10) L 3.79 M/UL (4.70-6.10) L 3.63 M/UL (4.70-6.10) L 3.90 M/UL (4.70-6.10) L Hemoglobin 8.8 G/DL (14.2-18.0) #L 7.9 G/DL (14.2-18.0) L 7.6 G/DL (14.2-18.0) L 7.7 G/DL (14.2-18.0) L Hematocrit 29.0 % (42.0-52.0) #L 26.2 % (42.0-52.0) L 25.1 % (42.0-52.0) L 27.4 % (42.0-52.0) L Mean Corpuscular Volume 69 FL (80-99) #L 69 FL (80-99) L 69 FL (80-99) L 70 FL (80-99) L Mean Corpuscular Hemoglobin 21.2 PG (27.0-31.0) L 20.8 PG (27.0-31.0) L 20.9 PG (27.0-31.0) L 19.8 PG (27.0-31.0) L Mean Corpuscular Hemoglobin Concent 30.5 G/DL (32.0-36.0) L 30.0 G/DL (32.0-36.0) L 30.3 G/DL (32.0-36.0) L 28.2 G/DL (32.0-36.0) L Red Cell Distribution Width 23.0 % (11.6-14.8) H 22.6 % (11.6-14.8) H 23.0 % (11.6-14.8) H 22.9 % (11.6-14.8) H Platelet Count 186 K/UL (150-450) 204 K/UL (150-450) 189 K/UL (150-450) 187 K/UL (150-450) Mean Platelet Volume 5.7 FL (6.5-10.1) L 5.5 FL (6.5-10.1) L 6.4 FL (6.5-10.1) L 5.9 FL (6.5-10.1) L Neutrophils (%) (Auto) 65.8 % (45.0-75.0) % (45.0-75.0) % (45.0-75.0) % (45.0-75.0) Lymphocytes (%) (Auto) 15.5 % (20.0-45.0) L % (20.0-45.0) % (20.0-45.0) % (20.0-45.0) Monocytes (%) (Auto) 11.7 % (1.0-10.0) H % (1.0-10.0) % (1.0-10.0) % (1.0-10.0) Eosinophils (%) (Auto) 5.0 % (0.0-3.0) H % (0.0-3.0) % (0.0-3.0) % (0.0-3.0) Basophils (%) (Auto) 2.1 % (0.0-2.0) H % (0.0-2.0) % (0.0-2.0) % (0.0-2.0) Sodium Level 142 MMOL/L (136-145) # 139 MMOL/L (136-145) Potassium Level 3.5 MMOL/L (3.5-5.1) 3.4 MMOL/L (3.5-5.1) L Chloride Level 106 MMOL/L (98-107) 104 MMOL/L (98-107) Carbon Dioxide Level 24 MMOL/L (21-32) 23 MMOL/L (21-32) Anion Gap 12 mmol/L (5-15) 12 mmol/L (5-15) Blood Urea Nitrogen 7 mg/dL (7-18) 5 mg/dL (7-18) L Creatinine 0.8 MG/DL (0.55-1.30) 0.7 MG/DL (0.55-1.30) Estimat Glomerular Filtration Rate > 60 mL/min (>60) > 60 mL/min (>60) Glucose Level 80 MG/DL (74-106) 70 MG/DL (74-106) L Calcium Level 7.8 MG/DL (8.5-10.1) L 7.9 MG/DL (8.5-10.1) L Total Bilirubin 1.1 MG/DL (0.2-1.0) H 1.5 MG/DL (0.2-1.0) H Direct Bilirubin 0.4 MG/DL (0.0-0.3) H 0.4 MG/DL (0.0-0.3) H Aspartate Amino Transf (AST/SGOT) 65 U/L (15-37) H 47 U/L (15-37) H Alanine Aminotransferase (ALT/SGPT) 27 U/L (12-78) 23 U/L (12-78) Alkaline Phosphatase 59 U/L (46-116) 54 U/L (46-116) Total Protein 7.9 G/DL (6.4-8.2) 7.8 G/DL (6.4-8.2) Albumin 2.9 G/DL (3.4-5.0) L 2.9 G/DL (3.4-5.0) L Globulin 5.0 g/dL 4.9 g/dL Albumin/Globulin Ratio 0.6 (1.0-2.7) L 0.6 (1.0-2.7) L Prothrombin Time 11.5 SEC (9.30-11.50) Prothromb Time International Ratio 1.1 (0.9-1.1) Activated Partial Thromboplast Time 30 SEC (23-33) Differential Total Cells Counted 100 Neutrophils % (Manual) 72 % (45-75) Lymphocytes % (Manual) 17 % (20-45) L Monocytes % (Manual) 9 % (1-10) Eosinophils % (Manual) 2 % (0-3) Basophils % (Manual) 0 % (0-2) Band Neutrophils 0 % (0-8) Platelet Estimate Adequate Platelet Morphology Normal Hypochromasia 1+ Anisocytosis 2+ Microcytosis 1+ Impression/Recommendations Problems: (1) symptomatic seizure episode (2) Alcohol intoxication (3) ETOH abuse (4) ETOH intoxication (5) r/o scabies (6) r/o DVT (7) GI bleed (8) Homeless single person Status: doing well Recommendations # [id number] PRABHA STARR Mar 25, 2017 12:12
--- NOTE | 2017-03-25 12:56 | Wound Care Consultation ---
Wound Assessment Wound Assessment #1: Wound Number: 1 Wound Present on Admission: Yes New Wound: No Status Change of Wound: No Wound Location Body Site Modif: left, lower Wound Location Body Site: leg Wound Type: other - self inflicted scratches scattered Marisol Test: Does not Marisol Wound Thickness: Full Thickness Percent of Wound [place]/Red: 50 - scabs Percent of Wound Bed Yellow/Wh: 50 - scabs Wound Drainage Description: Serosanguineous Wound Drainage Amount: Scant Wound Drainage Odor: None/Absent Tissue Surrounding Wound: Erythemic Wound General Appearance: Reddened Wound Assessment #2: Wound Number: 2 Wound Present on Admission: Yes New Wound: No Status Change of Wound: No Wound Location Body Site Modif: right, lower Wound Location Body Site: leg Wound Type: other - self inflicted scattered scratches Marisol Test: Does not Marisol Wound Thickness: Full Thickness Percent of Wound [place]/Red: 50 Percent of Wound Bed Yellow/Wh: 50 Wound Drainage Description: Serosanguineous Wound Drainage Amount: Scant Wound Drainage Odor: None/Absent Tissue Surrounding Wound: Erythemic Wound General Appearance: Reddened Wound Comment #1 Right lower leg scattered self inflicted scratches with red and yellow scabs #2 Left lower leg scattered self inflicted scratches with red and yellow scabs. Recommendation - Local wound care as ordered. - Keep clean and dry. -Optimize nutrition. -Turn and reposition. -Offload affected area. -Assess and notify MD for any changes of condition to skin. SARAH BETH SOLIS Mar 25, 2017 12:56
[2017-03-25 16:40] LABS: BASOPHILS % (AUTO) 1.8 % (0.0-2.0); EOSINOPHILS % (AUTO) 4.9 % (0.0-3.0); LYMPHOCYTES % (AUTO) 14.9 % (20.0-45.0); MEAN CORPUSCULAR HEMOGLOBIN 21.4 PG (27.0-31.0); MEAN CORPUSCULAR HGB CONC 30.3 G/DL (32.0-36.0); MEAN CORPUSCULAR VOLUME 71 FL (80-99); MEAN PLATELET VOLUME 6.3 FL (6.5-10.1); MONOCYTES % (AUTO) 15.7 % (1.0-10.0); NEUTROPHILS % (AUTO) 62.7 % (45.0-75.0); PLATELET COUNT 168 K/UL (150-450); RED BLOOD COUNT 4.01 M/UL (4.70-6.10); RED CELL DISTRIBUTION WIDTH 23.3 % (11.6-14.8); WHITE BLOOD COUNT 4.8 K/UL (4.8-10.8)
[2017-03-25] MEDS: Folic Acid 1 MG, Magnesium Sulfate 2,000 MG, Multivitamin - 12 Injection 10 ML in NS w/... IV SCH (17:11)
[2017-03-25] MEDS: Thiamine HCl 100 MG in D5W 55 ML IVPB SCH (17:58)
--- NOTE | 2017-03-25 19:15 | Procedure Note ---
DATE OF PROCEDURE: 03/25/2017 SURGEON: Richy Cordero M.D. PROCEDURE: Upper endoscopy with biopsy. ANESTHESIOLOGIST: Basilio Escobar. INSTRUMENT: Olympus adult flexible upper endoscope. INDICATION: Upper gastrointestinal bleeding. REASON FOR PROCEDURE: The procedure, risks, benefits, and possible consequences, including hemorrhage, aspiration, perforation and infection, and alternative treatments, were explained to the patient/legal guardian by Dr. Richy Cordero and the patient/legal guardian understood and accepted these risks. DESCRIPTION OF PROCEDURE: After informed consent was obtained and the patient was adequately sedated, the Olympus upper endoscope was advanced from mouth into the second portion of duodenum and retroflexion was performed of the stomach. The patient had evidence of diffuse severe distal esophagitis with esophageal ulceration most probably the source of bleeding. In the stomach, there was diffuse gastritis. Random biopsy from antrum was obtained to rule out H. pylori infection. Retroflexion of the stomach showed evidence of small hiatal hernia. The patient tolerated the procedure very well without any complication. SUMMARY FINDINGS: 1. Severe esophagitis with esophageal ulcerations. 2. Hiatal hernia. 3. Gastritis. RECOMMENDATIONS: 1. Elevate the head of the bed at all times. 2. Start diet. 3. Continue on PPI. 4. Monitor hemoglobin and hematocrit and transfuse as needed. Richy Cordero M.D. DR: GARRY JOB#: [id number] CC:
[2017-03-25] MEDS ORDERED: Zolpidem 5mg tab ORAL PRN (20:00)
[2017-03-25] MEDS ORDERED: Miralax 17gm pkt ORAL PRN (20:00)
[2017-03-25] MEDS ORDERED: Mylanta II UD 30ml ORAL PRN (20:00)
[2017-03-25] MEDS ORDERED: Morphine Sulfate 2mg/ml Inj IVP PRN (20:00)
[2017-03-25] MEDS ORDERED: LORazepam Inj 2mg/ml 1ml IV PRN (20:00)
[2017-03-25] MEDS ORDERED: chlordiazePOXIDE 25mg Cap ORAL PRN (20:00)
[2017-03-25] MEDS ORDERED: Folic Acid 1 MG, Magnesium Sulfate 2,000 MG, Multivitamin - 12 Injection 10 ML in NS w/... IV SCH (20:30)
[2017-03-25] MEDS ORDERED: Vitamin A&D Oint 2oz Tube TOPIC SCH (21:00)
[2017-03-25] MEDS: Vitamin A&D Oint 2oz Tube TOPIC SCH (21:27)
--- NOTE | 2017-03-25 22:00 | Consultation ---
DATE OF CONSULTATION: 03/25/2017 NEUROLOGICAL CONSULTATION CONSULTING PHYSICIAN: Madi Gunderson M.D. REQUESTING PHYSICIAN: Santi Machado M.D. HISTORY OF PRESENT ILLNESS: The patient is a 56-year-old man brought to this hospital after he was found to be having seizure on the street. Bystanders called paramedics. He was found to be incoherent, not able to give any appropriate history and speech described as being slurred. His vital signs on admission included blood pressure 110/74, temperature 98.1, and pulse oximetry 99%. The patient had a CT of the brain that revealed no acute abnormalities. His laboratory work on admission included sodium 130, calcium 7.6, AST 64, BNP of 417. Total protein 8.9. Liver function with elevated AST and total bilirubin. Toxicology panel revealed serum alcohol of 576. Urinalysis was normal. Coagulation panel was normal and hematology panel revealed hemoglobin of 5.5 and low MCV and MCH. The patient was given blood transfusion improving his hemoglobin up to 8.8. He had an endoscopy done and this revealed esophagitis. There were no further paroxysmal events noted. PAST MEDICAL HISTORY: The patient is now able to provide with information indicating that he has a history of chronic alcohol abuse, but he takes only few beers a day. As of on the day of admission, he had a few beers plus some mixed up with tequila as they were celebrating a birthday of his friend. He is unaware of having seizures, but showed that he became unresponsive waking up only while in the hospital. He has a history of hypertension, but does not take any medication because "I do not have money." The patient is homeless for the last 15 years after his divorce. He denies drug abuse. He is nonsmoker. He has a history of left eye trauma at the age of 13. REVIEW OF SYMPTOMS: Currently "feels much better." Denies headache or dizziness. Denies chest pain or palpitation. No respiratory problem. Denies abdominal pain or discomfort. No urinary or bowel incontinence. Admitted having swelling in lower extremities, dilated veins, but no gait abnormality. He is itching and scratching his both lower extremities. PHYSICAL EXAMINATION: GENERAL: This is a well-developed, well-nourished, disheveled man, not in acute distress, lying comfortably in bed. VITAL SIGNS: Blood pressure 144/77 and heart rate of 76. HEENT: Head, normocephalic. No evidence of trauma. There is a left eye trauma. Otherwise ears, nose, and throat are clear. EXTREMITIES: Upper and lower extremities, there is a 2+ pitting edema at both ankles with vein dilations. Scratches seem scabious. Peripheral pulses 1+ symmetric. MENTAL STATUS: He is now alert and oriented x3 with no evidence of aphasia or apraxia. Able to recall medical and social history. CRANIAL NERVE II: Pupils on the right side 3 mm responding to light and accommodation. Extraocular movements intact. CRANIAL NERVE V: Normal corneal responses. CRANIAL NERVE VII: No facial asymmetry. CRANIAL NERVE VIII: Normal hearing. CRANIAL NERVE IX THROUGH XII: Tongue is in midline. Symmetric palate elevation. MOTOR EXAMINATION: Normal muscle tone. Strength 5/5 in all extremities. No involuntary movement. Deep tendon reflexes 1+ bilaterally symmetric. SENSORY EXAMINATION: Slight decrease in pin sensation in both feet. Gait not tested but reported stable. IMPRESSION: 1. Chronic alcohol abuse, who presented with severe alcohol intoxication and a single episode of generalized seizure activity. 2. Gastrointestinal bleed with acute anemia. 3. History of hypertension. 4. Homelessness. 5. Venous distention in both lower extremities. 6. Rule out scabies. RECOMMENDATIONS: 1. The patient had a single seizure episode, most likely related to severe alcohol intoxication with encephalopathy. No anticonvulsants will be necessary, although I will obtain electroencephalogram and observe for further paroxysmal events. We will start on thiamine supplement 100 mg daily and use Ativan 1 mg IV q.2 h. p.r.n. for seizures. 2. Continue with supportive care. Madi Gunderson M.D. DR: GUNNER JOB#: [id number] CC:
[2017-03-26] VITALS: BP 157/84
[2017-03-26 00:57] LABS: BASOPHILS % (AUTO) 2.1 % (0.0-2.0); EOSINOPHILS % (AUTO) 9.3 % (0.0-3.0); LYMPHOCYTES % (AUTO) 10.9 % (20.0-45.0); MEAN CORPUSCULAR HEMOGLOBIN 21.4 PG (27.0-31.0); MEAN CORPUSCULAR HGB CONC 30.2 G/DL (32.0-36.0); MEAN CORPUSCULAR VOLUME 71 FL (80-99); MEAN PLATELET VOLUME 6.3 FL (6.5-10.1); MONOCYTES % (AUTO) 15.9 % (1.0-10.0); NEUTROPHILS % (AUTO) 61.7 % (45.0-75.0); PLATELET COUNT 178 K/UL (150-450); RED BLOOD COUNT 4.01 M/UL (4.70-6.10); RED CELL DISTRIBUTION WIDTH 23.4 % (11.6-14.8); WHITE BLOOD COUNT 6.4 K/UL (4.8-10.8)
[2017-03-26 04:00] VITALS: BP 155/84
[2017-03-26 08:00] VITALS: BP 132/75
[2017-03-26 08:16] LABS: BASOPHILS % (AUTO) 0.8 % (0.0-2.0); EOSINOPHILS % (AUTO) 12.7 % (0.0-3.0); LYMPHOCYTES % (AUTO) 14.1 % (20.0-45.0); MEAN CORPUSCULAR HEMOGLOBIN 20.8 PG (27.0-31.0); MEAN CORPUSCULAR HGB CONC 29.1 G/DL (32.0-36.0); MEAN CORPUSCULAR VOLUME 72 FL (80-99); MEAN PLATELET VOLUME 4.9 FL (6.5-10.1); NEUTROPHILS % (AUTO) 64.4 % (45.0-75.0); PLATELET COUNT 177 K/UL (150-450); RED BLOOD COUNT 4.53 M/UL (4.70-6.10); RED CELL DISTRIBUTION WIDTH 23.9 % (11.6-14.8); WHITE BLOOD COUNT 6.9 K/UL (4.8-10.8)
[2017-03-26] MEDS: Pantoprazole Inj IVP SCH (08:36)
[2017-03-26] MEDS: Vitamin A&D Oint 2oz Tube TOPIC SCH (08:36)
[2017-03-26 08:46] LABS: ALANINE AMINOTRANSFERASE 21 U/L (12-78); ALBUMIN/GLOBULIN RATIO 0.6 (1.0-2.7); ANION GAP 6 mmol/L (5-15); ASPARTATE AMINO TRANSFERASE 32 U/L (15-37); CALCIUM 8.2 MG/DL (8.5-10.1); CARBON DIOXIDE 29 MMOL/L (21-32); CHLORIDE 102 MMOL/L (98-107); FERRITIN 11 NG/ML (8-388); GLOMERULAR FILTRATION RATE > 60 mL/min (>60); POTASSIUM 3.5 MMOL/L (3.5-5.1); SODIUM 137 MMOL/L (136-145); TOTAL PROTEIN 8.7 G/DL (6.4-8.2)
[2017-03-26 09:05] LABS: FOLIC ACID 19.6 NG/ML (8.6-58.9); IRON 24 ug/dL (50-175); TOTAL IRON BINDING CAPACITY 401 ug/dL (250-450)
[2017-03-26 09:31] LABS: BILIRUBIN,DIRECT 0.4 MG/DL (0.0-0.3)
--- NOTE | 2017-03-26 10:49 | GI Progress Note ---
Assessment/Plan Problems: (1) ETOH abuse ICD Codes: F10.10 - Alcohol abuse, uncomplicated SNOMED: 69381041 (2) Homelessness ICD Codes: Z59.0 - Homelessness SNOMED: 48863467 (3) ETOH intoxication (4) Alcohol intoxication ICD Codes: F10.929 - Alcohol use, unspecified with intoxication, unspecified SNOMED: 93671783 (5) Symptomatic anemia ICD Codes: D64.9 - Anemia, unspecified SNOMED: [id number] Status: stable Status Narrative Discussed with Dr. Cordero. Assessment/Plan SUMMARY FINDINGS: 1. Severe esophagitis with esophageal ulcerations. 2. Hiatal hernia. 3. Gastritis. RECOMMENDATIONS: okay for DC per GI standpoint 1. Elevate the head of the bed at all times. 2. Start diet. 3. Continue on PPI. 4. Monitor hemoglobin and hematocrit and transfuse as needed. ETOH cessation education given Subjective Gastrointestinal/Abdominal: Reports: abdominal pain - improved Objective Last 24 Hour Vital Signs Date Time Temp Pulse Resp B/P (MAP) Pulse Ox O2 Delivery O2 Flow Rate FiO2 03/26/17 08:00 97.3 78 20 132/75 99 03/26/17 04:00 98.1 58 18 155/84 98 03/26/17 00:00 98.4 61 21 157/84 98 03/25/17 20:00 98 Room Air 03/25/17 20:00 99.5 69 21 145/74 98 03/25/17 19:00 75 18 148/76 98 Room Air 03/25/17 18:00 98.8 80 15 136/78 98 Room Air 03/25/17 17:00 72 21 142/62 99 Room Air 03/25/17 16:00 99.1 66 22 145/72 98 Room Air 03/25/17 16:00 67 03/25/17 15:00 65 20 133/98 96 Room Air 03/25/17 14:00 80 17 135/80 98 Room Air 03/25/17 13:00 98 19 135/80 100 Room Air 03/25/17 12:00 98.3 80 14 156/80 95 Room Air 03/25/17 12:00 63 03/25/17 11:39 70 20 100 03/25/17 11:38 70 18 99 03/25/17 11:00 76 20 144/77 100 Room Air Laboratory Tests Test 03/25/17 16:10 03/26/17 00:20 03/26/17 07:50 White Blood Count 4.8 K/UL (4.8-10.8) 6.4 K/UL (4.8-10.8) 6.9 K/UL (4.8-10.8) Red Blood Count 4.01 M/UL (4.70-6.10) L 4.01 M/UL (4.70-6.10) L 4.53 M/UL (4.70-6.10) L Hemoglobin 8.6 G/DL (14.2-18.0) L 8.6 G/DL (14.2-18.0) L 9.4 G/DL (14.2-18.0) L Hematocrit 28.3 % (42.0-52.0) L 28.4 % (42.0-52.0) L 32.4 % (42.0-52.0) L Mean Corpuscular Volume 71 FL (80-99) L 71 FL (80-99) L 72 FL (80-99) L Mean Corpuscular Hemoglobin 21.4 PG (27.0-31.0) L 21.4 PG (27.0-31.0) L 20.8 PG (27.0-31.0) L Mean Corpuscular Hemoglobin Concent 30.3 G/DL (32.0-36.0) L 30.2 G/DL (32.0-36.0) L 29.1 G/DL (32.0-36.0) L Red Cell Distribution Width 23.3 % (11.6-14.8) H 23.4 % (11.6-14.8) H 23.9 % (11.6-14.8) H Platelet Count 168 K/UL (150-450) 178 K/UL (150-450) 177 K/UL (150-450) Mean Platelet Volume 6.3 FL (6.5-10.1) L 6.3 FL (6.5-10.1) L 4.9 FL (6.5-10.1) L Neutrophils (%) (Auto) 62.7 % (45.0-75.0) 61.7 % (45.0-75.0) 64.4 % (45.0-75.0) Lymphocytes (%) (Auto) 14.9 % (20.0-45.0) L 10.9 % (20.0-45.0) L 14.1 % (20.0-45.0) L Monocytes (%) (Auto) 15.7 % (1.0-10.0) H 15.9 % (1.0-10.0) H 8.0 % (1.0-10.0) Eosinophils (%) (Auto) 4.9 % (0.0-3.0) H 9.3 % (0.0-3.0) H 12.7 % (0.0-3.0) H Basophils (%) (Auto) 1.8 % (0.0-2.0) 2.1 % (0.0-2.0) H 0.8 % (0.0-2.0) Reticulocyte Count 1.7 % (0.0-2.0) Sodium Level 137 MMOL/L (136-145) Potassium Level 3.5 MMOL/L (3.5-5.1) Chloride Level 102 MMOL/L (98-107) Carbon Dioxide Level 29 MMOL/L (21-32) Anion Gap 6 mmol/L (5-15) Blood Urea Nitrogen 8 mg/dL (7-18) Creatinine 1.0 MG/DL (0.55-1.30) Estimat Glomerular Filtration Rate > 60 mL/min (>60) Glucose Level 130 MG/DL (74-106) H Calcium Level 8.2 MG/DL (8.5-10.1) L Iron Level 24 ug/dL (50-175) L Total Iron Binding Capacity 401 ug/dL (250-450) Percent Iron Saturation 6 % (15-50) L Unsaturated Iron Binding 377 ug/dL (112-346) H Ferritin 11 NG/ML (8-388) Total Bilirubin 1.2 MG/DL (0.2-1.0) H Direct Bilirubin 0.4 MG/DL (0.0-0.3) H Aspartate Amino Transf (AST/SGOT) 32 U/L (15-37) Alanine Aminotransferase (ALT/SGPT) 21 U/L (12-78) Alkaline Phosphatase 63 U/L (46-116) Total Protein 8.7 G/DL (6.4-8.2) H Albumin 3.1 G/DL (3.4-5.0) L Globulin 5.6 g/dL Albumin/Globulin Ratio 0.6 (1.0-2.7) L Vitamin B12 Level 473 PG/ML (193-986) Folate 19.6 NG/ML (8.6-58.9) Thyroid Stimulating Hormone (TSH) 3.190 uiU/mL (0.358-3.740) Free Thyroxine 1.06 NG/DL (0.76-1.46) Height (Feet): 6 Height (Inches): 0.00 Weight (Pounds): 220 General Appearance: WD/WN, no apparent distress, alert, overweight Cardiovascular: normal rate Respiratory/Chest: normal breath sounds, no respiratory distress Abdominal Exam: normal bowel sounds, non tender, soft Extremities: normal range of motion, non-tender Brianda Johnson N.P. Mar 26, 2017 10:49
[2017-03-26 12:00] VITALS: BP 161/88
[2017-03-26 15:24] VITALS: BP 137/89
[2017-03-26] MEDS ORDERED: ACETAMINOPHEN325 M1 ORAL (15:31)
--- NOTE | 2017-03-26 15:32 | Pulmonology Progress Note ---
Assessment/Plan Problems: (1) Hemorrhagic shock (2) GI bleed (3) Alcohol intoxication (4) Homelessness (5) Uncontrolled seizures (6) Symptomatic anemia Assessment/Plan h/yh stable doing better dc home Subjective ROS Limited/Unobtainable: No Interval Events: doing better Allergies: Coded Allergies: No Known Allergies (Unverified , 03/24/17) Objective Last 24 Hour Vital Signs Date Time Temp Pulse Resp B/P (MAP) Pulse Ox O2 Delivery O2 Flow Rate FiO2 03/26/17 15:24 98.0 73 19 137/89 98 Room Air 03/26/17 12:00 98.2 63 20 161/88 99 03/26/17 08:00 97.3 78 20 132/75 99 03/26/17 04:00 98.1 58 18 155/84 98 03/26/17 00:00 98.4 61 21 157/84 98 03/25/17 20:00 98 Room Air 03/25/17 20:00 99.5 69 21 145/74 98 03/25/17 19:00 75 18 148/76 98 Room Air 03/25/17 18:00 98.8 80 15 136/78 98 Room Air 03/25/17 17:00 72 21 142/62 99 Room Air 03/25/17 16:00 99.1 66 22 145/72 98 Room Air 03/25/17 16:00 67 General Appearance: WD/WN HEENT: normocephalic, atraumatic Respiratory/Chest: chest wall non-tender, lungs clear Cardiovascular: normal peripheral pulses, normal rate Abdomen: soft, non tender, non distended Genitourinary: normal external genitalia Extremities: no clubbing Skin: no lesions, no ulcers Microbiology Date/Time Source Procedure Growth Status 03/24/17 00:33 Blood Blood Culture - Preliminary Resulted 03/24/17 00:15 Blood Blood Culture - Preliminary Resulted 03/24/17 02:00 Nasal Not Otherwise Specified MRSA Culture - Final NO METHICILLIN RESISTANT STAPH AUREUS... Complete 03/24/17 02:00 Rectum VRE Culture - Final NO VANCOMYCIN RESISTANT ENTEROCOCCUS ... Complete Laboratory Tests 03/25/17 16:10: White Blood Count 4.8, Red Blood Count 4.01L, Hemoglobin 8.6L, Hematocrit 28.3L , Mean Corpuscular Volume 71L, Mean Corpuscular Hemoglobin 21.4L, Mean Corpuscular Hemoglobin Concent 30.3L, Red Cell Distribution Width 23.3H, Platelet Count 168, Mean Platelet Volume 6.3L, Neutrophils (%) (Auto) 62.7, Lymphocytes (%) (Auto) 14.9L, Monocytes (%) (Auto) 15.7H, Eosinophils (%) (Auto ) 4.9H, Basophils (%) (Auto) 1.8 03/26/17 00:20: White Blood Count 6.4, Red Blood Count 4.01L, Hemoglobin 8.6L, Hematocrit 28.4L , Mean Corpuscular Volume 71L, Mean Corpuscular Hemoglobin 21.4L, Mean Corpuscular Hemoglobin Concent 30.2L, Red Cell Distribution Width 23.4H, Platelet Count 178, Mean Platelet Volume 6.3L, Neutrophils (%) (Auto) 61.7, Lymphocytes (%) (Auto) 10.9L, Monocytes (%) (Auto) 15.9H, Eosinophils (%) (Auto ) 9.3H, Basophils (%) (Auto) 2.1H 03/26/17 07:50: White Blood Count 6.9, Red Blood Count 4.53L, Hemoglobin 9.4L, Hematocrit 32.4L , Mean Corpuscular Volume 72L, Mean Corpuscular Hemoglobin 20.8L, Mean Corpuscular Hemoglobin Concent 29.1L, Red Cell Distribution Width 23.9H, Platelet Count 177, Mean Platelet Volume 4.9L, Neutrophils (%) (Auto) 64.4, Lymphocytes (%) (Auto) 14.1L, Monocytes (%) (Auto) 8.0, Eosinophils (%) (Auto) 12.7H, Basophils (%) (Auto) 0.8, Reticulocyte Count 1.7, Sodium Level 137, Potassium Level 3.5, Chloride Level 102, Carbon Dioxide Level 29, Anion Gap 6, Blood Urea Nitrogen 8, Creatinine 1.0, Estimat Glomerular Filtration Rate > 60, Glucose Level 130H, Calcium Level 8.2L, Iron Level 24L, Total Iron Binding Capacity 401, Percent Iron Saturation 6L, Unsaturated Iron Binding 377H, Ferritin 11, Total Bilirubin 1.2H, Direct Bilirubin 0.4H, Aspartate Amino Transf (AST/SGOT) 32, Alanine Aminotransferase (ALT/SGPT) 21, Alkaline Phosphatase 63, Total Protein 8.7H, Albumin 3.1L, Globulin 5.6, Albumin/ Globulin Ratio 0.6L, Vitamin B12 Level 473, Folate 19.6, Thyroid Stimulating Hormone (TSH) 3.190, Free Thyroxine 1.06 Current Medications Medications (Trade) Dose Ordered Sig/Wendy Route PRN Reason Start Time Stop Time Status Last Admin Dose Admin Acetaminophen (Tylenol) 650 mg Q4H PRN ORAL fever 03/25/17 20:00 04/23/17 19:59 Al Hydroxide/Mg Hydroxide (Mylanta II) 30 ml Q6H PRN ORAL dyspepsia 03/25/17 20:00 04/24/17 19:59 Chlordiazepoxide (Librium) 25 mg Q6H PRN ORAL Agitation 03/25/17 20:00 03/31/17 19:59 Dextrose (Dextrose 50%) STAT PRN IV Hypoglycemia 03/25/17 20:00 04/24/17 19:59 Fluoxetine HCl (PROzac) 20 mg DAILY ORAL 03/27/17 09:00 04/26/17 08:59 Folic Acid 1 mg/ Magnesium Sulfate 2000 mg/ Multivitamins 10 ml/Sodium Chloride 1,014.2 ml @ 125 mls/ hr Q24H IV 03/25/17 20:30 04/24/17 20:29 Lorazepam (Ativan 2mg/ml 1ml) 2 mg Q1H PRN IV seizures 03/25/17 20:00 03/31/17 19:59 Morphine Sulfate (Morphine Sulfate) 1 mg Q4H PRN IVP For Moderate to Severe Pain 03/25/17 20:00 03/31/17 19:59 03/25/17 21:07 Ondansetron HCl (Zofran) 4 mg Q6H PRN IVP Nausea & Vomiting 03/25/17 20:00 04/24/17 19:59 Pantoprazole (Protonix) 40 mg EVERY 12 HOURS IVP 03/25/17 21:00 04/23/17 20:59 03/26/17 08:36 Polyethylene Glycol (Miralax) 17 gm HSPRN PRN ORAL Constipation 03/25/17 20:00 04/24/17 19:59 Thiamine HCl 100 mg/Dextrose 56 ml @ 112 mls/hr Q24H IVPB 03/26/17 20:30 04/25/17 20:29 Vitamin A/Vitamin D (A & D Oint) 1 applic EVERY 12 HOURS TOPIC 03/25/17 21:00 04/24/17 20:59 03/26/17 08:36 Zolpidem Tartrate (Ambien) 5 mg HSPRN PRN ORAL Insomnia 03/25/17 20:00 04/01/17 19:59 SAVANNAH JUAREZ Mar 26, 2017 15:32
[2017-03-26] MEDS ORDERED: Thiamine HCl 100 MG in D5W 55 ML IVPB SCH (20:30)
--- NOTE | 2017-03-27 10:55 | Discharge Summary ---
Discharge Summary Hospital Course Date of Admission Mar 24, 2017 at 02:16 Date of Discharge Mar 26, 2017 at 17:36 Admitting Diagnosis Acute gastrointestinal bleed KENNEDY Ellison is a 56 year old male who was admitted on Mar 24, 2017 at 02:16 for Acute Gastrointestinal Bleed Hospital Course [id number] Discharge Discharge Disposition Patient was discharged to Home Discharge Diagnoses: Lucina Henley NP Mar 27, 2017 10:55
--- NOTE | 2017-03-28 02:45 | Discharge Summary 2 SIG ---
DATE OF ADMISSION: 03/24/2017 DATE OF DISCHARGE: 03/26/2017 CONSULTANTS: 1. Richy Cordero M.D. 2. Madi Gunderson M.D. BRIEF HOSPITAL COURSE: The patient is a 56-year-old male with history of ETOH abuse and homelessness. He was found to be having seizure on the street. Bystanders called paramedics and on arrival, he was incoherent and not able to give any history. Speech was slurred. He has a history of chronic alcohol abuse and takes few beers a day. On evaluation at ED, he was incoherent, but moving all extremities without focal deficits. He was maintaining his gag reflex and was saturating well. Blood work was done. He was noted to have anemia. Hemoglobin was 5.5 and hematocrit was 20. Creatinine was 1.0, BUN 13, and sodium was 130. His AST was 64 and ALT 19. Urine toxicology was negative. Serum alcohol was 576. CT of the head done showed no acute intracranial findings with a mid left parietal scalp swelling. He was admitted to ICU for upper GI bleed as well as seizures. He was paced on IV hydration with banana bag and was given Librium. He was started on blood transfusion. During inpatient stay, he received a total of 5 units packed RBC. On 03/25/2017, he underwent an EGD with Dr. Cordero. Findings showed severe esophagitis with esophageal ulcerations, hiatal hernia, and gastritis. He was continued on proton pump inhibitors and was advised to elevate head of bed at all times. He was eventually started on diet. He was seen by Dr. Gunderson. The patient is now more able to provide information indicating that he has a history of chronic alcohol abuse, but he takes only a few beers. On the day of admission, he had few beers mixed with tequila as they were celebrating a birthday of his friend. He was unaware of having seizures, but showed that he became unresponsive waking up only in the hospital. The patient had a single seizure episode most likely related to severe alcohol intoxication with encephalopathy. No anticonvulsants were necessary. He was given thiamine supplements 100 mg and was placed on seizure precautions with Ativan 1 mg IV q.2 h. p.r.n. seizures. He was counseled against ETOH and was given ETOH cessation education. He underwent physical therapy and occupational therapy. He had a scattered self-inflicted scratches with yellow scabs on both lower extremities. He was given wound care. Hemoglobin and hematocrit were stable. He was eventually discharged. Social service was called in to aid with discharge. FINAL DIAGNOSES: 1. Hemorrhagic shock. 2. Acute gastrointestinal bleed. 3. Acute symptomatic anemia requiring blood transfusion. 4. Alcohol intoxication. 5. Homelessness. 6. Uncontrolled seizures. 7. Severe esophagitis with esophageal ulcerations. 8. Hiatal hernia. 9. Gastritis. 10. Chronic alcohol abuse with single episode of generalized seizure activity secondary to severe alcohol intoxication. 11. Possible scabies. 12. Venous distention in both lower extremities. DISCHARGE DISPOSITION: The patient was discharged home. DISCHARGE MEDICATIONS: Refer to medication list. The patient was counseled to avoid use of NSAIDs for pain. FOLLOWUP: Follow up with [facility] or PCP. Santi Machado M.D. I have been assigned to dictate discharge summary on this account and I was not involved in the patient's management. Lucina Henley N.P. DR: JULIO C JOB#: [id number] CC: JUAN
--- NOTE | 2017-04-02 11:01 | Diagnostic Imaging Report ---
APPROVED REPORT CPT Code: 78683 Present Symptoms Lower Extremity Edema: Bilateral BILATERAL: Imaging reveals a patent deep venous system bilaterally. There is no evidence of thrombus within the femoral, popliteal or tibial segments. The greater saphenous veins are also within normal limits. Doppler indicates normal spontaneous flow within these segments.
== END 2017-03-26 17:36 | disposition home or self-care (01) | DRG 380 ==
LOC: EDBD 23:43 → EMR 23:59 → ICU 03-24 02:16 → EDBEDREQ 03-24 13:36 → 4E 03-25 20:20
PROC: 0DB68ZX Excision of Stomach, Via Natural or Artificial Opening Endoscopic, Diagnostic (ICD-10-PCS; principal; 2017-03-25 10:21)
DX: K22.11 Ulcer of esophagus with bleeding (principal); R57.8 Other shock; G93.49 Other encephalopathy; R56.9 Unspecified convulsions; D64.9 Anemia, unspecified; B86 Scabies; F10.129 Alcohol abuse with intoxication, unspecified; Y90.8 Blood alcohol level of 240 mg/100 ml or more; Z59.0 Homelessness; K44.9 Diaphragmatic hernia without obstruction or gangrene; K29.70 Gastritis, unspecified, without bleeding; K20.8 Other esophagitis
CPT/HCPCS: 36415; 70450; 71010; 80053; 80307; 80329; 81003; 82248; 82378; 82550; 82553; 82607; 82728; 82746; 83540; 83550; 83690; 83880; 84439; 84443; 84484; 85007; 85025; 85044; 85610; 85730; 86850; 86900; 86901; 86920; 87040; 87081; 87181; 93005; 93970; 94003; 94150; J2250; J8499